=== PATIENT | female | born 1945 | race Two or more races ===

== ENCOUNTER → 2017-04-30 10:26 | Outpatient (CLI) | payer BC, SELFPAY ==
[2017-04-30 10:14] VITALS: BMI 26.2
--- NOTE | 2017-04-30 10:31 | RAD_ITS ---
STUDY: X-RAY - LEFT KNEE REASON FOR EXAM: Female, 71 years old. Knee pain. No trauma TECHNIQUE: 4 view(s) of the knee. COMPARISON: None. FINDINGS: Normal visualized distal femur. Normal visualized proximal tibia and fibula. Normal proximal tibiofibular articulation. There is tricompartmental osteoarthritis more prominent involving the patellofemoral joint. There is small joint effusion The soft tissue structures are unremarkable. RAD/Knee 4 or More Views IMPRESSION: Tricompartmental osteoarthritis. Small joint effusion Electronically Signed: Alejandro Lu MD, FACR at 11:14 EST , Service support ,
--- NOTE | 2017-04-30 11:10 | RAD_ITS ---
STUDY: X-RAY - LUMBOSACRAL SPINE REASON FOR EXAM: Female, 71 years old. Posterior low back pain. TECHNIQUE: 6 view(s) of the lumbosacral spine were obtained. COMPARISON: None FINDINGS: There is a first-degree L5 anterolisthesis in relationship to the S1 vertebra with mild disc space narrowing. A pars articularis defect cannot be identified and there is severe facet arthrosis. This appears most likely represent a degenerative anterolisthesis. There is increased lordosis of the lumbar spine with minimal endplate spondylosis. There is mild disc space narrowing at the L2-3 and L3-4 levels. Normal visualized soft tissue structures. RAD/L/S Spine Comp/w Bending Views IMPRESSION: 1. First-degree L5 anterolisthesis with severe degenerative arthrosis of the L5-S1 facet joint suggesting a degenerative anterolisthesis. 2. Mild disc space narrowing at the L2-3 and L3-4 levels. 3. Minimal endplate spondylosis with an increased lordosis of lumbar spine. Electronically Signed: Rodney Lima DO at 13:42 EST Tel , Service support ,
== END ==
PROVIDERS: Family Provider Family Medicine; PCP Family Medicine; Visit Provider Orthopaedic Surgery
DX: M25.561 Pain in right knee (principal); M54.9 Dorsalgia, unspecified
CPT/HCPCS: 72114; 73564

== ENCOUNTER → 2019-04-07 10:24 | Outpatient (CLI) | payer BC, SELFPAY ==
[2017-04-30 10:14] VITALS: BMI 26.2
--- NOTE | 2019-04-07 10:27 | BI_ITS ---
MAMMOGRAPHY - BILATERAL SCREENING REASON FOR EXAM: Female, 73 years old. Routine annual screening examination. PERTINENT HISTORY: Non-contributory. TECHNIQUE: Digital bilateral breast jose (3D mammographic acquisition) in the CC and MLO projections. 2-D mediolateral oblique (MLO) and craniocaudad (CC) views of both breasts were obtained. CAD: Full Field Digital Mammography with Computer Added Detection was performed. COMPARISON: Comparison is made with prior study dated May 29, 2016. FINDINGS: Breast Composition: The breasts are heterogeneously dense, which may obscure small masses. There are no dominant masses or suspicious calcifications. Stable benign-appearing bilateral axillary lymph nodes. No other significant abnormalities are identified. There has been no significant change since the prior study. BI/SCREEN MAMM (CAD) W/JOSE BILAT IMPRESSION: Stable bilateral screening mammogram. Yearly follow-up mammogram recommended. (A) ASSESSMENT CATEGORY: BIRADS Category 2: Benign. A letter regarding these results will be sent to the patient by the facility within 30 days. Approximately 10% of breast cancers are not detected by mammography. A normal mammogram should not delay biopsy of a clinically suspicious abnormality. [id number] Electronically Signed: Tristan Oswald, at 12:40 EST , Service support ,
== END ==
PROVIDERS: Family Provider Family Medicine; PCP Family Medicine; Referring Provider Family Medicine; Visit Provider Family Medicine
DX: Z12.31 Encounter for screening mammogram for malignant neoplasm of breast (principal)
CPT/HCPCS: 77063; 77067

== ENCOUNTER 2019-04-14 07:47 | Day surgery (SDC) | payer BC, SELFPAY ==
[2017-04-30 10:14] VITALS: BMI 26.2
[2019-04-14] VITALS (7 sets, daily range): BP systolic 75–130; BP diastolic 44–83; PULSE 58–65; RESP 16; TEMP 36.2–36.8; O2SAT 99–100
[2019-04-14] MEDS: Lactated Ringers 1,000 ML 100 ML IV (08:20)
--- NOTE | 2019-04-14 08:38 | H&P.OPEN ---
History of Present Illness Date of Admission: 04/14/19 The patient is a 73 year old F here for screening colonoscopy. The patient reports she is never had a colonoscopy in the past. She is not having any weight loss or abdominal pain. She has no family history of colon cancer. Past Medical/Surgical History - Planned Operation Planned Operative Procedure/s: cscope/open access Date of Operative Procedure: 04/14/19 Permit Signed: No S.O.S: No Is This Patient Having a Total Joint: No - Previous Hospitalizations/Surgeries HX Hospitalizations: No HX of Surgeries: csection Any Problems With Anesthesia: No You/Your Family Experience Fever (Hyperthermia) With Anes: No Cholinesterase deficiency: No - Cardiovascular Hx Chest Pain within Last 2 months: No Hx of Irregular Heartbeat and/or Afib: No Hx Heart Attack: No Hx Congestive Heart Failure: No Hx Rheumatic Fever: No Hx Hypertension: Yes - controlled with med Hx Internal Defibrillator: No Hx Pacemaker: No Hx Cardiac Catheterization: No Hx Cardiac Surgery/Stents/Etc.: No Hx Stress Test: No HX Edema: No Hx Pain in Legs when Walking/Leg Cramps: No - Respiratory Chronic Cough: No HX of Shortness of Breath: No Hoarseness: No Hx Chronic Obstructive Pulmonary Disease (COPD): No Hx Asthma: No Hx Emphysema: No Hx Sleep Apnea: No Hx Oxygen Use at Home: No Hx Respiratory Tract Infection/Cold (presently): No Do You Snore Loudly (louder than talking or can be heard): No Do You Often Feel Tired/ Fatigued/ Sleepy Dring Daytime?: No Has Anyone Observed You Stop Breathing During Sleep?: No Result (for STOP score): Negative Hx Smoking: No Smoking Status: Never smoker - Gastrointestinal Hx Gastroesophageal Reflux: No Hx Gastrointestinal Disorders: No Hx Gastrointestinal Bleed: No Hx Ulcer: No Hx Hiatal Hernia: No Difficulty Chewing/Swallowing: No Recent Onset of Swallowing Problems: No Special diet followed at home: No Hx Unplanned Weight Loss of 20#: No HX Unplanned Weight Gain of 20#: No - Neurological Hx Seizures: No HX Syncope/Blackout Spells/Unconsciousness: No Hx CVA/Stroke: No Hx Transient Ischemic Attacks (TIA): No Hx Multiple Sclerosis: No Hx Parkinson's Disease: No Hx Head/Neck Injury: No Hx Headaches: No Hx Back Injury/Pain: No Recent Onset of Speech Difficulty: No Restless Legs: No Does patient have nerve stimulator: No Patient instructed to have device shut off: No Rep notified?: No - Blood Disorder Hx Leukemia: No Bleeding Tendencies: No Hx Deep Vein Thrombosis: No Hx High Cholesterol: No Blood Transmitted Disease: No Hx Hepatitis: No Hx Cirrhosis: No Hx Anemia: No Hx Blood Disorders: No - Reproduction : No Is Patient Lactating: No Hx Hysterectomy: No Hx Tubal Ligation: No Are You Post Menopause: Yes - Genitourinary Hx Renal Disease: No - Musculoskeletal Hx Arthritis: Yes Hx Rheumatoid Arthritis: No Hx Gout: No Recent Onset of an Orthopedic Problem: No - Endocrine Hx Diabetes: No Thyroid Disease: No Hx Steroid Therapy: No - Psycho/Social Hx Substance Use: No Hx Alcohol Use: No Hx Anxiety: No Hx Depression: No Mental Illness: No Hx Dementia: No - Miscellaneous Hx Cancer: No Recent Exposure to Contagious Disease: No Active MRSA: No Hx of C-Diff: No Any Loose Teeth: No Allergies No Known Allergies Allergy (Verified 04/14/19 08:12) - Discharge Is Pt Admitted From a Long-Term, or a Mc[facility]: No Who Could Help: family After D/C, Where Do you Plan to Go: Return Home - From the PAT History Number of Risk Factors: 1 - Physical Exam Vitals/I&O's: Vital Signs Temp Pulse Resp BP Pulse Ox 98.2 F 65 16 130/83 H 99 04/14/19 08:10 04/14/19 08:10 04/14/19 08:10 04/14/19 08:10 04/14/19 08:10 Oxygen Delivery Method Room Air Weight: 129 lb 6.4 oz Body Mass Index (BMI) 26.2 General: Alert, Oriented x3 Lungs: Normal air movement Cardiovascular: Regular rate, Regular Rhythm Abdomen: Soft, Non Tender, Non-Distended Current Medications Lactated Ringer's () 1,000 mls @ 100 mls/hr IV .Q10H HIRAM Last Admin: 04/14/19 08:20 Dose: 100 mls/hr Documented by: Assessment/Plan 73-year-old female screening colonoscopy 1. I explained endoscopy in detail to the patient. I explained the risks including but not limited to stroke or heart attack with anesthesia, perforation of the GI tract, bleeding, infection. I explained that any of these could necessitate further emergency surgery. The patient understands and all questions were answered sufficiently. The patient wishes to proceed with procedure. Hasmukh Hodgson MD Pager: [facility] [address] [place] [address] [address] [place] [address] Office: Surgery Risks - Colonoscopy Risks Include but are not Limited To: Risks include but are not limited to: Bleeding, perforation requiring further surgery, inability to complete colonoscopy requiring barium enema.
--- NOTE | 2019-04-14 09:05 | OP.COLON_ITS ---
Patient Name: Roxana Coffman Procedure Date: 04/14/2019 8:41 AM Date of : 1945 Age: 73 Procedure: Colonoscopy Indications: Screening for colorectal malignant neoplasm Providers: Hasmukh Hodgson MD Referring MD: Caroline Medina Medicines: Monitored Anesthesia Care Patient Profile: This is a 73 year old female. Refer to note in patient chart for documentation of history and physical. Last Colonoscopy: none. The patient's first colonoscopy is today. Complications: No immediate complications. Procedure: Pre-Anesthesia Assessment: - Prior to the procedure, a History and Physical was performed, and patient medications and allergies were reviewed. The patient's tolerance of previous anesthesia was also reviewed. The risks and benefits of the procedure and the sedation options and risks were discussed with the patient. All questions were answered, and informed consent was obtained. Prior Anticoagulants: The patient has taken no previous anticoagulant or antiplatelet agents. After reviewing the risks and benefits, the patient was deemed in satisfactory condition to undergo the procedure. After I obtained informed consent, the scope was passed under direct vision. Throughout the procedure, the patient's blood pressure, pulse, and oxygen saturations were monitored continuously. The Colonoscope was introduced through the anus and advanced to the cecum, identified by appendiceal orifice and ileocecal valve. The colonoscopy was performed without difficulty. The patient tolerated the procedure well. The quality of the bowel preparation was good. Scope In: 8:50:46 AM Scope Withdrawal Time 0 hours 6 minutes 0 seconds Scope Out: 9:00:36 AM Total Procedure Duration Time 0 hours 9 minutes 50 seconds Findings: The entire examined colon appeared normal on direct and retroflexion views. Impression: - The entire examined colon is normal on direct and retroflexion views. - No specimens collected. Recommendation: - Discharge patient to home. - Resume previous diet. - Continue present medications. - Repeat colonoscopy is not recommended due to current age (66 years or older) for screening purposes. Procedure Code(s): --- Professional --- G0121, Colorectal cancer screening; colonoscopy on individual not meeting criteria for high risk Diagnosis Code(s): --- Professional --- Z12.11, Encounter for screening for malignant neoplasm of colon CPT copyright 2017 [employer] [employer]. All rights reserved. The codes documented in this report are preliminary and upon sterilisation technician review may be revised to meet current compliance requirements. Hasmukh Hodgson MD 04/14/2019 9:04:42 AM This report has been signed electronically. Number of Addenda: 0 Note Initiated On: 04/14/2019 8:41 AM
--- NOTE | 2019-04-14 09:05 | OP.CCLET_ITS ---
04/14/2019 Caroline Medina [address] [place] [address] Re : Colonoscopy procedure for Roxana Coffman Dear Dr. Medina This procedure was performed on Sunday, April 14, 2019. My impressions and recommendations are as follows: Impressions : - The entire examined colon is normal on direct and retroflexion views. - No specimens collected. Recommendations : - Discharge patient to home. - Resume previous diet. - Continue present medications. - Repeat colonoscopy is not recommended due to current age (66 years or older) for screening purposes. My findings are described in the full procedure note, which is enclosed. If I can be of further assistance, please feel free to contact me at Doctor phone number(s): , Work: . Sincerely, Hasmukh Hodgson MD 04/14/2019 9:04:42 AM This report has been signed electronically.
== END 2019-04-14 09:52 | disposition home or self-care (01) ==
LOC: EN 07:47 → AC 07:49
PROVIDERS: Family Provider Family Medicine; PCP Family Medicine; Referring Provider Family Medicine; Visit Provider Surgery
PROC: 0DJD8ZZ Inspection of Lower Intestinal Tract, Via Natural or Artificial Opening Endoscopic (ICD-10-PCS; CPT 45378; principal; 2019-04-14 08:55)
DX: Z12.11 Encounter for screening for malignant neoplasm of colon (principal); I10 Essential (primary) hypertension; M19.90 Unspecified osteoarthritis, unspecified site; Z79.899 Other long term (current) drug therapy
CPT/HCPCS: 45378; J7120

== ENCOUNTER → 2021-12-27 | Outpatient (CLI) | payer BC, SELFPAY ==
[2021-12-27 07:39] LABS: Absolute Lymphocyte Count 1.58 X10^3/uL (0.83-4.51); Absolute Neutrophil Count 1.9 X10^3/uL (2.0-7.7); Basophil# 0.04 X10^3/uL; Eosinophil# 0.19 X10^3/uL; Eosinophils% 4.5 % (0-5); Hemoglobin 9.8 g/dL (12.0-15.0); Lymphocyte # 1.58 X10^3/ul (0.83-4.51); Lymphocyte % 37.7 % (19-41); Mean Corp Hgb Conc 30.6 g/dL (32-36); Mean Corpuscular Volume 81.6 fL (81-99); Mean Platelet Vol. 9.7 fl (6.2-12.0); Monocyte# 0.42 X10^3/uL; NRBC Flagged by Analyzer 0 % (0-5); Neutrophil # 1.94 X10^3/uL (2.7-7.7); Neutrophil % 46.3 % (47-70); Platelet Count 290 K/mm3 (150-450); RBC Distribution Width CV 17.1 % (11.6-14.6); RBC Distribution Width SD 50.4 fl (35.1-43.9); Red Blood Count 3.92 M/mm3 (4.2-5.4); White Blood Count 4.2 K/mm3 (4.4-11.0)
[2021-12-27 08:00] LABS: AST(SGOT) 18 U/L (15-37); Alanine Aminotransfer ALT/SGPT 24 U/L (13-56); Albumin, Serum 3.5 g/dL (3.2-5.0); Alkaline Phosphatase 59 U/L (45-117); Anion Gap 6 (5-15); BUN 16 mg/dL (7-18); BUN/Creat Ratio 19.7 RATIO (10-20); Calcium,Total 8.8 mg/dL (8.5-10.1); Chloride 104 mmol/L (98-107); Cholesterol 170 mg/dL (200); Creatinine, Serum 0.81 mg/dL (0.55-1.02); EST Glomerular Filtration Rate 73 mL/min (>60); Est Glom Filt Rate - Afr Amer 89 mL/min (>60); Globulin 3.4 g/dL (2.2-4.2); Glucose 135 mg/dL (74-106); High Density Lipoprotein 64 mg/dL; Potassium 3.3 mmol/L (3.5-5.1); Protein, Total 6.9 g/dL (6.4-8.2); Sodium Level 141 mmol/L (136-145); Triglycerides 54 mg/dL; Very Low Density Lipoprotein 11 mg/dL (5-40)
[2021-12-27 08:08] LABS: Hemoglobin A1c 6.8 % (3.8-5.6)
== END | disposition home or self-care (01) ==
LOC: LAB 07:01
PROVIDERS: PCP Family Medicine; Referring Provider Family Medicine; Visit Provider Family Medicine
DX: I10 Essential (primary) hypertension (principal); R73.03 Prediabetes
CPT/HCPCS: 36415; 80053; 80061; 83036; 85025

== ENCOUNTER → 2022-03-04 | Outpatient (CLI) | payer BC, SELFPAY ==
--- NOTE | 2022-03-04 13:40 | BI_ITS ---
MAMMOGRAPHY - BILATERAL SCREENING REASON FOR EXAM: Female, 76 years old. Routine annual screening examination. PERTINENT HISTORY: Non-contributory. TECHNIQUE: Digital bilateral breast jose (3D mammographic acquisition) in the CC and MLO projections. 2-D mediolateral oblique (MLO) and craniocaudad (CC) views of both breasts were obtained. CAD: Full Field Digital Mammography with Computer Added Detection was performed. COMPARISON: Comparison is made with prior study dated 04/07/2019 and 05/29/2016. FINDINGS: Breast Composition: The breasts are heterogeneously dense, which may obscure small masses. There are no dominant masses or suspicious calcifications. Stable benign-appearing bilateral axillary lymph nodes. No other significant abnormalities are identified. There has been no significant change since the prior study. BI/SCRN MAMM (CAD)W/JOSE BILAT IMPRESSION: Stable bilateral screening mammogram. Yearly follow-up mammogram recommended. (A) ASSESSMENT CATEGORY: BIRADS Category 2: Benign. A letter regarding these results will be sent to the patient by the facility within 30 days. Approximately 10% of breast cancers are not detected by mammography. A normal mammogram should not delay biopsy of a clinically suspicious abnormality. [id number] Electronically Signed: Tristan Oswald MD at 14:39 EST ,
== END | disposition home or self-care (01) ==
LOC: OPBI 13:39
PROVIDERS: PCP Family Medicine; Visit Provider Family Medicine
DX: Z12.31 Encounter for screening mammogram for malignant neoplasm of breast (principal)
CPT/HCPCS: 77063; 77067

== ENCOUNTER → 2022-11-07 | Outpatient (CLI) | payer BC, SELFPAY ==
[2022-11-07 07:56] LABS: Absolute Lymphocyte Count 1.81 X10^3/uL (0.83-4.51); Basophil# 0.04 X10^3/uL; Basophil% 0.9 % (0-1); Eosinophil# 0.24 X10^3/uL; Eosinophils% 5.2 % (0-5); Hematocrit 40.5 % (37-47); Hemoglobin 13.4 g/dL (12.0-15.0); Lymphocyte # 1.81 X10^3/ul (0.83-4.51); Lymphocyte % 39.4 % (19-41); Mean Corp Hgb Conc 33.1 g/dL (32-36); Mean Corpuscular Hgb 30.7 pg (27.0-32.0); Mean Corpuscular Volume 92.9 fL (81-99); Mean Platelet Vol. 9.6 fl (6.2-12.0); Monocyte# 0.45 X10^3/uL; Monocyte% 9.8 % (0-10); NRBC Flagged by Analyzer 0 % (0-5); Neutrophil # 2.04 X10^3/uL (2.7-7.7); Neutrophil % 44.5 % (47-70); Platelet Count 232 K/mm3 (150-450); RBC Distribution Width CV 13.7 % (11.6-14.6); RBC Distribution Width SD 46.5 fl (35.1-43.9); Red Blood Count 4.36 M/mm3 (4.2-5.4); White Blood Count 4.6 K/mm3 (4.4-11.0)
[2022-11-07 08:43] LABS: ALB/GLOB Ratio 1.2 RATIO (0.9-2.4); AST(SGOT) 19 U/L (15-37); Alanine Aminotransfer ALT/SGPT 21 U/L (13-56); Albumin, Serum 3.9 g/dL (3.2-5.0); Alkaline Phosphatase 66 U/L (45-117); Anion Gap 3 (5-15); BUN 9 mg/dL (7-18); BUN/Creat Ratio 11.9 RATIO (10-20); Calcium,Total 8.9 mg/dL (8.5-10.1); Chloride 107 mmol/L (98-107); Cholesterol 192 mg/dL (200); Creatinine, Serum 0.76 mg/dL (0.55-1.02); EST Glomerular Filtration Rate 79 mL/min (>60); Est Glom Filt Rate - Afr Amer 96 mL/min (>60); Ferritin 93 ng/mL (8-252); Free T3 2.5 pg/mL (2.18-3.98); Globulin 3.2 g/dL (2.2-4.2); Glucose 107 mg/dL (74-106); High Density Lipoprotein 60 mg/dL; Iron 93 ug/dL (50-170); Potassium 3.4 mmol/L (3.5-5.1); Protein, Total 7.1 g/dL (6.4-8.2); Sodium Level 141 mmol/L (136-145); T4 Free Direct 1.12 ng/dL (0.76-1.46); Triglycerides 84 mg/dL; Very Low Density Lipoprotein 17 mg/dL (5-40)
[2022-11-08 09:21] LABS: Hemoglobin A1c 6.4 % (3.8-5.6)
== END | disposition home or self-care (01) ==
PROVIDERS: PCP Family Medicine; Referring Provider Family Medicine; Visit Provider Family Medicine
DX: E87.6 Hypokalemia (principal); D64.9 Anemia, unspecified; I10 Essential (primary) hypertension; E03.9 Hypothyroidism, unspecified; R73.03 Prediabetes
CPT/HCPCS: 36415; 80053; 80061; 82728; 83036; 83540; 84439; 84443; 84481; 85025

== ENCOUNTER → 2023-03-18 | Outpatient (CLI) | payer BC, SELFPAY ==
--- OUTSIDE RECORDS SUMMARY | 2023-03-18 08:04 | XMS RPT_ITS | CCD ---
Author Name Unknown Address [address] [place] [address] Organization [facility] Care Team Providers Care Fish Trapper Name Role Phone Caroline Irvin DO Primary Care Provider NORMAN MODI Attending Unavailable CAROLINE IRVIN Primary Care Unavailable MODINORMAN BIGGS Referring Unavailable BRANDEE CAROLINE Jonatan Primary Care Unavailable NORMAN MODI Attending Unavailable CAROLINE IRVIN Primary Care Unavailable NORMAN MODI Attending Unavailable MODIERICNORMAN K Referring Unavailable MODIERICNORMAN K Attending Unavailable BRANDEE CAROLINE A Primary Care Unavailable MODI NORMAN K Referring Unavailable MODIERICNORMAN K Attending Unavailable KAMILA IRVINA A Primary Care Unavailable ANNE NORMAN K Referring Unavailable Kamila Irvin DOa Isidra Unavailable Unavailable Kamila Irvin DOa Isidra Unavailable Unavailable Medications Current Medications Medication Drug Class(es) Dates Sig (Normalized) Sig (Original) ketorolac tromethamine 5 mg/ml ophthalmic solution (2 sources) Nonsteroidal Anti-inflammatory Drug, Cyclooxygenase Inhibitor Start: 11-27-2022 End: 01-01-2023 take 1 drop(s) into the eye(s) four times daily keTORolac (ACULAR) 0.5 % ophthalmic solution Use 1 Drop in the left eye four times daily. 5 mL 1 11/27/2022 01/01/2023 Active Completed/Discontinued Medications Medication Drug Class(es) Dates Sig (Normalized) Sig (Original) benoxinate hydrochloride 4 mg/ml / fluorescein sodium 2.5 mg/ml ophthalmic solution (1 source) Diagnostic Dye Start: 10-26-2022 End: 10-26-2022 fluorescein-benoxina te 0.25-0.4 % 1 Drop (FLURESS) betamethasone 1 mg/ml topical lotion (5 sources) Corticosteroid Start: 04-01-2017 betamethasone valerate 0.1 % lotion Indications: Ear itching 2-3 drops in affected ear twice daily as needed for itching 60 mL 1 04/01/2017 Active Problems Active Problems Problem Classification Problem Date Documented Da te Episodic/Chronic Cataract (15 sources) 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; Translations: [Combined forms of age-related cataract, left eye] Onset: 12-26-2014 10-26-2022 Chronic Essential hypertension (9 sources) Essential hypertension; Translations: [Essential (primary) hypertension] Onset: 12-31-2021 10-26-2022 Chronic Inflammation; infection of eye (except that caused by tuberculosis or sexually transmitteddisease) (5 sources) Bilateral punctate keratitis of eyes; Translations: [Punctate keratitis, bilateral] Onset: 11-22-2019 11-22-2019 Chronic Other eye disorders (5 sources) Bilateral vitreous floaters; Translations: [Other vitreous opacities, bilateral] Onset: 02-26-2014 02-27-2015 Chronic Other eye disorders (5 sources) Vitreous floaters; Translations: [Other vitreous opacities, unspecified eye] Onset: 12-26-2014 12-26-2014 Chronic Other eye disorders (5 sources) H/O: L cataract extraction; Translations: [Cataract extraction status, left eye] Onset: 12-03-2022 11-27-2022 Episodic Thyroid disorders (5 sources) Hypothyroidism; Translations: [Hypothyroidism, unspecified] Onset: 10-23-2022 10-26-2022 Chronic Past or Other Problems Problem Classification Problem Date Documented Da te Episodic/Chronic Blindness and vision defects (5 sources) Regular astigmatism; Translations: [Regular astigmatism, unspecified eye] Onset: 05-26-2014 05-26-2014 Episodic Other eye disorders (5 sources) Tear film insufficiency; Translations: [Dry eye syndrome of unspecified lacrimal gland] Onset: 12-26-2014 12-26-2014 Episodic Other eye disorders (5 sources) Disorder of lacrimal gland; Translations: [Dry eye syndrome of bilateral lacrimal glands] Onset: 11-22-2019 11-22-2019 Episodic Results Test Name Value Interpretation Reference Range Facil ity Vital Signs Date Time Vital Sign Value Performing Clinician Faci lity 11-24-2022 14:03-0400 Body height 154.7 cm Norman Modi MD Work Phone: [facility] 11-24-2022 14:03-0400 Body mass index (BMI) [Ratio] 24.23 kg/m2 Norman Modi MD Work Phone: [facility] 11-24-2022 14:03-0400 Body weight 58 kg Norman Modi MD Work Phone: [facility] 11-16-2022 09:32-0400 Diastolic blood pressure 81 mm[Hg] Norman Modi MD Work Phone: [facility] 11-16-2022 09:32-0400 Heart rate 66 /min Norman Modi MD Work Phone: [facility] 11-16-2022 09:32-0400 Systolic blood pressure 161 mm[Hg] Norman Modi MD Work Phone: [facility] 10-26-2022 09:46-0400 Diastolic blood pressure 81 mm[Hg] Norman Modi MD Work Phone: [facility] 10-26-2022 09:46-0400 Heart rate 66 /min Norman Modi MD Work Phone: [facility] 10-26-2022 09:46-0400 Systolic blood pressure 161 mm[Hg] Norman Modi MD Work Phone: [facility] Encounters Encounter Date Encounter Type Care Provider Facility Start: 01-08-2023 End: 01-08-2023 ambulatory NORMAN MODI Facility:[facility] Start: 01-08-2023 End: 01-08-2023 Patient encounter procedure Norman Modi MD Work Phone: Ophthalmology Procedures Date Procedure Procedure Detail Performing Clinician Start: 11-16-2022 ASCAN ONLY - DIAGNOS TIC OS (LEFT EYE) Norman Modi MD Work Phone: Start: 10-26-2022 ASCAN ONLY - DIAGNOS TIC OS (LEFT EYE) Norman Modi MD Work Phone: Start: 10-26-2022 Computerized ophthal mayra imaging retina Norman Modi MD Work Phone: Start: 06-15-2014 History of cataract extraction S/P laser cataract surgery - Right Eye Norman Modi MD Work Phone: Plan of Treatment Date Care Activity Detail Author Start: 11-20-2022 Covid-19 Vaccine () Covid-19 Vaccine () [facility] Start: 11-20-2022 Influenza vaccination [facility] Start: 03-22-2022 ADVANCE DIRECTIVE DISCUSSION ADVANCE DIRECTIVE DISCUSSION [facility] Start: 03-22-2022 DEPRESSION ASSESSMENT DEPRESSION ASSESSMENT [facility] Start: 06-10-2020 COVID-19 VACCINE (3 - Moderna series) COVID-19 VACCINE (3 - Moderna series) [facility] Start: 09-24-2012 BONE DENSITY BONE DENSITY [facility] Start: 09-24-2012 Bone Density Screening Bone Density Screening [facility] Start: 09-24-2012 Pneumococcal Vaccine: 65+ (1 - PCV) Pneumococcal Vaccine: 65+ (1 - PCV) [facility] Start: 09-24-2012 Pneumococcal Vaccine: 65+ Years (1 - PCV) Pneumococcal Vaccine: 65+ Years (1 - PCV) [facility] Start: 09-24-2012 PNEUMOCOCCAL: 65+ (1 - PCV) PNEUMOCOCCAL: 65+ (1 - PCV) [facility] Start: 2007 RSV Vaccine (1 - 1-dose 60+ series) RSV Vaccine (1 - 1-dose 60+ series) [facility] Start: 09-24-1997 SHINGRIX VACCINE (1 of 2) SHINGRIX VACCINE (1 of 2) [facility] Start: 09-24-1997 Zoster Vaccines (1 of 2) Zoster Vaccines (1 of 2) [facility] Start: 09-24-1992 COLOGUARD (FIT-DNA) COLOGUARD (FIT-DNA) [facility] Start: 09-24-1992 Colonoscopy COLONOSCOPY [facility] Start: 09-24-1992 COLORECTAL CANCER SCREENING COLORECTAL CANCER SCREENING [facility] Start: 09-24-[address] COLONOGRAPHY [facility] Start: 09-24-1992 DIABETES SCREEN DIABETES SCREEN [facility] Start: 09-24-1992 Diabetes Screening Diabetes Screening [facility] Start: 09-24-1992 FECAL OCCULT BLOOD FECAL OCCULT BLOOD [facility] Start: 09-24-1992 Lipid 1996 panel - Serum or Plasma Lipid Screening [facility] Start: 09-24-1992 LIPID SCREEN LIPID SCREEN [facility] Start: 09-24-1992 SIGMOIDOSCOPY SIGMOIDOSCOPY [facility] Start: 09-24-1969 DTaP/Tdap/Td Vaccines (1 - Tdap) DTaP/Tdap/Td Vaccines (1 - Tdap) [facility] Start: 09-24-1966 Urine microalbumin profile [facility] Start: 09-24-1965 ANNUAL PCP TEAM CHRONIC DISEASE VISIT ANNUAL PCP TEAM CHRONIC DISEASE VISIT [facility] Start: 09-24-1965 BP CONTROLLED (<130/80) BP CONTROLLED (<130/80) [facility] Start: 09-24-1965 HEPATITIS C SCREENING HEPATITIS C SCREENING [facility] Start: 09-24-1965 Hepatitis C screening Hepatitis C Screening [facility] Start: 03-27-1948 COVID-19 Vaccine (#1) COVID-19 Vaccine (#1) [facility] Start: 1947 Lipid panel Lipid Panel [facility] Start: 1947 Screening for malignant neoplasm of colon [facility] Start: 1947 Screening for osteoporosis Bone Density Scan [facility] Start: 1945 Yearly Adult Physical Yearly Adult Physical [facility] Payers Date Payer Category Payer Unknown Social History Date Type Detail Facility Start: 05-12-2014 End: 11-27-2022 Tobacco smoking status NHIS Never smoked tobacco [facility] Start: 05-12-2014 End: 11-27-2022 Tobacco use and exposure Smokeless tobacco non-user [facility] Start: 10-26-2022 End: 01-08-2023 Alcohol intake Current non-drinker of alcohol (finding) [facility] Start: 10-26-2022 End: 01-08-2023 History of Social function [facility] Start: 10-26-2022 End: 01-08-2023 Tobacco use panel [facility] National Score (1-100), lower number is lower risk 99 [facility] Start: 1945 Sex Assigned At Not on file C [facility] Tobacco smoking status TXIS Tobacco smoking consumption unknown [facility] Work Phone: Clinical Notes 12-26-2014 to 01-08-2023 Norman Modi MD - 01/08/2023 9:13 AM EDTPatient InstructionsPatient InstructionsNorman Modi MD - 12/03/2022 3:36 PM EDTPatient InstructionsNorman Modi MD - 11/27/2022 1:02 PM EDT Note Date & Type Note Facility 01-08-2023 Note HNO ID: [id number] Author: Norman Modi MD Service: ? Author Type: Physician Type: Progress Notes Filed: 01/08/2023 9:15 AM Note Text: ASSESSMENT/PLAN: 1. Status post cataract extraction and insertion of intraocular lens of left eye - ICD9: V45.61, V43.1, ICD10: Z98.42, Z96.1 (primary diagnosis) -healing well. Continue: Systane Complete Artificial Tears - Use 1 Drop into both eyes three times a day. 2. Pseudophakia of right eye - ICD9: V43.1, ICD10: Z96.1 -Intraocular lens in good position/ monitor. 3. Essential hypertension - ICD9: 401.9, ICD10: I10 4. Essential (primary) hypertension - ICD9: 401.9, ICD10: I10 -continue care with PCP I have confirmed and edited as necessary the relevant ophthalmic history, review of systems, surgical history, and ophthalmological examination findings as obtained by the ophthalmic technical staff. I have seen and examined Roxanaher Angel Coffman. I have discussed the examination findings, diagnosis, and treatment options with Roxana Coffman and/or her family. I have also reviewed and agree with the assessment and plan as stated above and agree with all its relevant components. I gave the patient the opportunity to ask questions about the findings, diagnosis, and treatment options. Norman Modi MD [facility] 01-08-2023 History of Present illness Narrative ASSESSMENT/PLAN: 1. Status post cataract extraction and insertion of intraocular lens of left eye - ICD9: V45.61, V43.1, ICD10: Z98.42, Z96.1 (primary diagnosis) -healing well. Continue: Systane Complete Artificial Tears - Use 1 Drop into both eyes three times a day. 2. Pseudophakia of right eye - ICD9: V43.1, ICD10: Z96.1 -Intraocular lens in good position/ monitor. 3. Essential hypertension - ICD9: 401.9, ICD10: I10 4. Essential (primary) hypertension - ICD9: 401.9, ICD10: I10 -continue care with PCP I have confirmed and edited as necessary the relevant ophthalmic history, review of systems, surgical history, and ophthalmological examination findings as obtained by the ophthalmic technical staff. I have seen and examined Roxana Coffman. I have discussed the examination findings, diagnosis, and treatment options with Roxana Coffman and/or her family. I have also reviewed and agree with the assessment and plan as stated above and agree with all its relevant components. I gave the patient the opportunity to ask questions about the findings, diagnosis, and treatment options. Norman Modi MD documented in this encounter [facility] 01-08-2023 Instructions Norman Modi MD - 01/08/2023 9:12 AM EDT Continue: Systane Complete Artificial Tears - Use 1 Drop into both eyes three times a day. If you have any questions please contact our office at [phone]. After office hours or on the weekend, please call Dr. Modi on his cell phone at [phone]. documented in this encounter [facility] 12-03-2022 Note HNO ID: [id number] Author: Norman Modi MD Service: ? Author Type: Physician Type: Progress Notes Filed: 12/03/2022 3:39 PM Note Text: ASSESSMENT/PLAN: 1. Status post cataract extraction and insertion of intraocular lens of left eye - ICD9: V45.61, V43.1, ICD10: Z98.42, Z96.1 (primary diagnosis) Left eye corrected for near Use medications as directed: Current Ophthalmic Meds keTORolac (ACULAR) 0.5 % ophthalmic solution Use 1 Drop in the left eye four times daily for 7 days then three times daily until 12/31/2022 prednisoLONE acetate (PRED FORTE) 1 % ophthalmic suspension Use 1 Drop in the left eye four times daily for 7 days then three times daily until 12/31/2022 Systane Complete Artificial Tears - Use 1 Drop into both eyes three times a day. 2. Pseudophakia of right eye - ICD9: V43.1, ICD10: Z96.1 Lens position well centered right eye Norman Modi MD I have confirmed and edited as necessary the relevant ophthalmic history, review of systems, surgical history, and ophthalmological examination findings as obtained by the ophthalmic technical staff. I have seen and examined Roxana Coffman. I have discussed the examination findings, diagnosis, and treatment options with Roxana Coffman and/or her family. I have also reviewed and agree with the assessment and plan as stated above and agree with all its relevant components. I gave the patient the opportunity to ask questions about the findings, diagnosis, and treatment options. [facility] 12-03-2022 Instructions Norman Modi MD - 12/03/2022 3:39 PM EDT Use medications as directed: Current Ophthalmic Meds keTORolac (ACULAR) 0.5 % ophthalmic solution Use 1 Drop in the left eye four times daily for 7 days then three times daily until 12/31/2022 prednisoLONE acetate (PRED FORTE) 1 % ophthalmic suspension Use 1 Drop in the left eye four times daily for 7 days then three times daily until 12/31/2022 Systane Complete Artificial Tears - Use 1 Drop into both eyes three times a day. If you have any questions please contact our office at [phone]. After office hours or on the weekend, please call Dr. Modi on his cell phone at [phone]. documented in this encounter [facility] 12-03-2022 History of Present illness Narrative ASSESSMENT/PLAN: 1. Status post cataract extraction and insertion of intraocular lens of left eye - ICD9: V45.61, V43.1, ICD10: Z98.42, Z96.1 (primary diagnosis) Left eye corrected for near Use medications as directed: Current Ophthalmic Meds keTORolac (ACULAR) 0.5 % ophthalmic solution Use 1 Drop in the left eye four times daily for 7 days then three times daily until 12/31/2022 prednisoLONE acetate (PRED FORTE) 1 % ophthalmic suspension Use 1 Drop in the left eye four times daily for 7 days then three times daily until 12/31/2022 Systane Complete Artificial Tears - Use 1 Drop into both eyes three times a day. 2. Pseudophakia of right eye - ICD9: V43.1, ICD10: Z96.1 Lens position well centered right eye Norman Modi MD I have confirmed and edited as necessary the relevant ophthalmic history, review of systems, surgical history, and ophthalmological examination findings as obtained by the ophthalmic technical staff. I have seen and examined Roxana Coffman. I have discussed the examination findings, diagnosis, and treatment options with Roxana Coffman and/or her family. I have also reviewed and agree with the assessment and plan as stated above and agree with all its relevant components. I gave the patient the opportunity to ask questions about the findings, diagnosis, and treatment options. documented in this encounter [facility] 11-27-2022 Note HNO ID: [id number] Author: Norman Modi MD Service: ? Author Type: Physician Type: Progress Notes Filed: 11/27/2022 1:10 PM Note Text: ASSESSMENT/PLAN: 1. Status post cataract extraction and insertion of intraocular lens of left eye - ICD9: V45.61, V43.1, ICD10: Z98.42, Z96.1 Current Ophthalmic Meds keTORolac (ACULAR) 0.5 % ophthalmic solution Use 1 Drop in the left eye four times daily. prednisoLONE acetate (PRED FORTE) 1 % ophthalmic suspension Use 1 Drop in the left eye four times daily. Continue: Systane Complete solution instill 1 drop 3 times daily Both Eyes. Norman Modi MD I have confirmed and edited as necessary the relevant ophthalmic history, review of systems, surgical history, and ophthalmological examination findings as obtained by the ophthalmic technical staff. I have seen and examined Roxana Coffman. I have discussed the examination findings, diagnosis, and treatment options with Roxana Coffman and/or her family. I have also reviewed and agree with the assessment and plan as stated above and agree with all its relevant components. I gave the patient the opportunity to ask questions about the findings, diagnosis, and treatment options. [facility] 11-27-2022 Instructions Norman Modi MD - 11/27/2022 1:03 PM EDT Current Ophthalmic Meds keTORolac (ACULAR) 0.5 % ophthalmic solution Use 1 Drop in the left eye four times daily. prednisoLONE acetate (PRED FORTE) 1 % ophthalmic suspension Use 1 Drop in the left eye four times daily. Continue: Systane Complete solution instill 1 drop 3 times daily Both Eyes. If you have any questions please contact our office at [phone]. After office hours or on the weekend, please call Dr. Modi on his cell phone at [phone]. documented in this encounter [facility] 11-27-2022 History of Present illness Narrative ASSESSMENT/PLAN: 1. Status post cataract extraction and insertion of intraocular lens of left eye - ICD9: V45.61, V43.1, ICD10: Z98.42, Z96.1 Current Ophthalmic Meds keTORolac (ACULAR) 0.5 % ophthalmic solution Use 1 Drop in the left eye four times daily. prednisoLONE acetate (PRED FORTE) 1 % ophthalmic suspension Use 1 Drop in the left eye four times daily. Continue: Systane Complete solution instill 1 drop 3 times daily Both Eyes. Norman Modi MD I have confirmed and edited as necessary the relevant ophthalmic history, review of systems, surgical history, and ophthalmological examination findings as obtained by the ophthalmic technical staff. I have seen and examined Roxana Coffman. I have discussed the examination findings, diagnosis, and treatment options with Roxana Coffman and/or her family. I have also reviewed and agree with the assessment and plan as stated above and agree with all its relevant components. I gave the patient the opportunity to ask questions about the findings, diagnosis, and treatment options. documented in this encounter [facility] 11-26-2022 Miscellaneous Notes Post Operative Note: Post-Procedure Diagnosis: 1. 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 Cataract Extraction with Intraocular Lens Implant Left Eye Surgeon: Norman Modi MD Resident/Fellow/Other Boat Dispatcher: None Estimated Blood Loss (mL): none Specimen: no Findings: 1. Combined Form Age Related Cataract Left Eye Operative Report Dictated: Dictation: not applicable - note contains Operative Report Operative Report: The patient was correctly identified in the preop area and the operative eye was marked with a marking pen. The operative eye was dilated in the preoperative area. The patient was then taken to the operating room where timeout was performed before starting the procedure. Combined anesthesia with intravenous sedation and topical tetracaine eyedrops were given the left eye. The operative eye was prepped and draped in the standard sterile ophthalmic fashion in preparation for ophthalmic surgery. A Carter wire speculum was then inserted between the eyelids of the left eye and the operating microscope was placed over the left eye. A paracentesis incision was made approximately 30 away from the planned surgical incision site with the help of MVR blade. 1% lidocaine MPF with Phenylephrine 1.5% PF was injected into the anterior chamber through the paracentesis incision. A near limbal clear corneal incision was fashioned in the temporal quadrant just outside the vascular arcade and Viscoat was injected into anterior chamber to firm the eye. A bent needle cystotome was used and Utrata forceps were utilized to create a continuous curvilinear capsulorrhexis. BSS was injected beneath the anterior capsule to hydrodissect the nucleus from adjacent cortex and capsule. The residual cortex were then aspirated with irrigation aspiration handpiece. The posterior capsule was then polished with the help of soft irrigation-aspiration tip. Provisc viscoelastic was then injected into the eye to reform the anterior chamber and to open the capsular bag. The intraocular lens implant was taken from its sterile wrapping, inspected under the surgical microscope and found to be in good condition. The intraocular lens implant 22.0D was injected into the capsule bag. The Provisc was then aspirated from the anterior chamber and from behind the intraocular lens implant. The anterior chamber was inflated with the help of BSS to moderate tension. The edges of the surgical incision were then hydrated with the help of BSS. Vigamox was then injected into the anterior chamber and into the capsule bag through the paracentesis incision. The surgical wound was then inspected and found to be watertight. The wire speculum and drapes were then removed. Pred Forte eyedrops, Acular eyedrops and Betadine 5% sterile ophthalmic solution were instilled in the conjunctival sac. The patient tolerated the procedure well and was taken to recovery room in stable condition. Attestation: Note Completion: Attending Attestation I performed the procedure without a resident Electronic Signatures: Norman Modi) (Signed 26-Nov-2022 13:06) Authored: Post Operative Note, Note Completion Last Updated: 26-Nov-2022 13:06 by Norman Modi) documented in this encounter [facility] Work Phone: 11-26-2022 Note Formatting of this n ote is different from the original. Post Operative Note: Post-Procedure Diagnosis: 1. 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 Cataract Extraction with Intraocular Lens Implant Left Eye Surgeon: Norman Modi MD Resident/Fellow/Other Boat Dispatcher: None Estimated Blood Loss (mL): none Specimen: no Findings: 1. Combined Form Age Related Cataract Left Eye Operative Report Dictated: Dictation: not applicable - note contains Operative Report Operative Report: The patient was correctly identified in the preop area and the operative eye was marked with a marking pen. The operative eye was dilated in the preoperative area. The patient was then taken to the operating room where timeout was performed before starting the procedure. Combined anesthesia with intravenous sedation and topical tetracaine eyedrops were given the left eye. The operative eye was prepped and draped in the standard sterile ophthalmic fashion in preparation for ophthalmic surgery. A Carter wire speculum was then inserted between the eyelids of the left eye and the operating microscope was placed over the left eye. A paracentesis incision was made approximately 30 away from the planned surgical incision site with the help of MVR blade. 1% lidocaine MPF with Phenylephrine 1.5% PF was injected into the anterior chamber through the paracentesis incision. A near limbal clear corneal incision was fashioned in the temporal quadrant just outside the vascular arcade and Viscoat was injected into anterior chamber to firm the eye. A bent needle cystotome was used and Utrata forceps were utilized to create a continuous curvilinear capsulorrhexis. BSS was injected beneath the anterior capsule to hydrodissect the nucleus from adjacent cortex and capsule. The residual cortex were then aspirated with irrigation aspiration handpiece. The posterior capsule was then polished with the help of soft irrigation-aspiration tip. Provisc viscoelastic was then injected into the eye to reform the anterior chamber and to open the capsular bag. The intraocular lens implant was taken from its sterile wrapping, inspected under the surgical microscope and found to be in good condition. The intraocular lens implant 22.0D was injected into the capsule bag. The Provisc was then aspirated from the anterior chamber and from behind the intraocular lens implant. The anterior chamber was inflated with the help of BSS to moderate tension. The edges of the surgical incision were then hydrated with the help of BSS. Vigamox was then injected into the anterior chamber and into the capsule bag through the paracentesis incision. The surgical wound was then inspected and found to be watertight. The wire speculum and drapes were then removed. Pred Forte eyedrops, Acular eyedrops and Betadine 5% sterile ophthalmic solution were instilled in the conjunctival sac. The patient tolerated the procedure well and was taken to recovery room in stable condition. Attestation: Note Completion: Attending Attestation I performed the procedure without a resident Electronic Signatures: Norman Modi) (Signed 26-Nov-2022 13:06) Authored: Post Operative Note, Note Completion Last Updated: 26-Nov-2022 13:06 by Norman Modi) [facility] Work Phone: 11-26-2022 History and physical note History & Physical Reviewed: I have reviewed the History and Physical dated: 16-Nov-2022 History and Physical reviewed and relevant findings noted. Patient examined to review pertinent physical findings.: No significant changes Home Medications Reviewed: no changes noted Allergies Reviewed: no changes noted ERAS (Enhanced Recovery After Surgery): ERAS Patient: no Consent: COVID-19 Consent: COVID-19 Risk Consent Surgeon has reviewed hart risks related to the risk of carri COVID-19 and if they contract COVID-19 what the risks are. Electronic Signatures: Norman Modi) (Signed 26-Nov-2022 11:45) Authored: History & Physical Reviewed, ERAS, Consent, Note Completion Last Updated: 26-Nov-2022 11:45 by Norman Modi) [facility] Work Phone: 11-26-2022 History and physical note History & Physical Reviewed: I have reviewed the History and Physical dated: 16-Nov-2022 History and Physical reviewed and relevant findings noted. Patient examined to review pertinent physical findings.: No significant changes Home Medications Reviewed: no changes noted Allergies Reviewed: no changes noted ERAS (Enhanced Recovery After Surgery): ERAS Patient: no Consent: COVID-19 Consent: COVID-19 Risk Consent Surgeon has reviewed hart risks related to the risk of carri COVID-19 and if they contract COVID-19 what the risks are. Electronic Signatures: Norman Modi) (Signed 26-Nov-2022 11:45) Authored: History & Physical Reviewed, ERAS, Consent, Note Completion Last Updated: 26-Nov-2022 11:45 by Norman Modi) documented in this encounter [facility] Work Phone: 11-16-2022 Note HNO ID: [id number] Author: Norman Modi MD Service: ? Author Type: Physician Type: Progress Notes Filed: 11/16/2022 9:57 AM Note Text: ASSESSMENT/PLAN: 1. Combined forms of age-related cataract, left eye - ICD9: 366.19, ICD10: H25.812 (primary diagnosis) Cataract Presurgical Documentation Cataract: Left eye (OS) Current Visual Acuity Right eye Distance 20/30 Left eye Distance 20/60 Visual Function: Roxana Coffman states that the decline in vision from the cataract impedes her abilities as listed in the HPI, as well as other activities of daily living. Roxana Coffman has confirmed that she is no longer able to function adequately on a day-to-day basis because of her current visual condition. Further, it is my medical opinion that the cataract is the primary cause, or at least a significantly contributory cause of her visual dysfunction. With uncomplicated cataract surgery and lens implantation, it is my expectation that her visual function and quality of life will improve, significantly. The risks, benefits, alternatives, personnel and complications of cataract surgery with lens implantation were discussed with Roxana Coffman in detail. she appeared to understand and asked that I proceed with plans for surgery. PHYSICAL EXAM: Vital Signs: Blood pressure 161/81, pulse 66. Respiratory: Normal breath sounds, no wheezing. CARD: Normal heart sounds 1 AND 2, normal sinus rhythm. Continue: Systane Complete Artificial Tears - Use 1 Drop into both eyes three times a day. Begin: Alrex eye drops- 1 drop left eye three times a day . Upon eye examination, patient was found to have a visually significant cataract left eye. Discussed cataract surgery with patient and different intraocular lens implant options with patient: basic monofocal intraocular lens implant, Toric intraocular lens implant, and presbyopia correction intraocular lens implant. In my medical opinion, based on medical history and ocular examination, cataract surgery with intraocular lens implant will correct patient's vision and improve quality of patient's daily living activities. Patient wishes to have traditional cataract surgery with basic intraocular lens left eye on November 26, 2022 at [facility]. Patient wishes to have cataract surgery with the option stated above. Patient understands that an intraocular lens implant does not necessarily replace the need for glasses. Patient understands that it is impossible for the surgeon to inform him/her of every possible complication that may occur. The surgeon has answered all of the patient's questions. Patient understands that if he/she has a mature or dense cataract, pseudoexfoliation cataract, or history of use of Flomax, he/she may require the use of Maluyugin Ring and/or Vision Blue during surgery. Patient understands the risks, benefits, and alternatives to surgery. 2. Pseudophakia of right eye - ICD9: V43.1, ICD10: Z96.1 -Intraocular lens in good position. 3. Essential hypertension - ICD9: 401.9, ICD10: I10 -continue care with PCP I have confirmed and edited as necessary the relevant ophthalmic history, review of systems, surgical history, and ophthalmological examination findings as obtained by the ophthalmic technical staff. I have seen and examined Roxana Coffman. I have discussed the examination findings, diagnosis, and treatment options with Roxana Coffman and/or her family. I have also reviewed and agree with the assessment and plan as stated above and agree with all its relevant components. I gave the patient the opportunity to ask questions about the findings, diagnosis, and treatment options. Norman Modi MD [facility] 11-16-2022 Instructions Norman Modi MD - 11/16/2022 9:41 AM EDT Continue: Systane Complete Artificial Tears - Use 1 Drop into both eyes three times a day. Begin: Alrex eye drops- 1 drop left eye three times a day . If you have any questions please contact our office at [phone]. After office hours or on the weekend, please call Dr. Modi on his cell phone at [phone]. documented in this encounter [facility] 11-16-2022 History of Present illness Narrative ASSESSMENT/PLAN: 1. Combined forms of age-related cataract, left eye - ICD9: 366.19, ICD10: H25.812 (primary diagnosis) Cataract Presurgical Documentation Cataract: Left eye (OS) Current Visual Acuity Right eye Distance 20/30 Left eye Distance 20/60 Visual Function: Roxana Coffman states that the decline in vision from the cataract impedes her abilities as listed in the HPI, as well as other activities of daily living. Roxana Coffman has confirmed that she is no longer able to function adequately on a day-to-day basis because of her current visual condition. Further, it is my medical opinion that the cataract is the primary cause, or at least a significantly contributory cause of her visual dysfunction. With uncomplicated cataract surgery and lens implantation, it is my expectation that her visual function and quality of life will improve, significantly. The risks, benefits, alternatives, personnel and complications of cataract surgery with lens implantation were discussed with Roxana Coffman in detail. she appeared to understand and asked that I proceed with plans for surgery. PHYSICAL EXAM: Vital Signs: Blood pressure 161/81, pulse 66. Respiratory: Normal breath sounds, no wheezing. CARD: Normal heart sounds 1 & 2, normal sinus rhythm. Continue: Systane Complete Artificial Tears - Use 1 Drop into both eyes three times a day. Begin: Alrex eye drops- 1 drop left eye three times a day . Upon eye examination, patient was found to have a visually significant cataract left eye. Discussed cataract surgery with patient and different intraocular lens implant options with patient: basic monofocal intraocular lens implant, Toric intraocular lens implant, and presbyopia correction intraocular lens implant. In my medical opinion, based on medical history and ocular examination, cataract surgery with intraocular lens implant will correct patient's vision and improve quality of patient's daily living activities. Patient wishes to have traditional cataract surgery with basic intraocular lens left eye on November 26, 2022 at [facility]. Patient wishes to have cataract surgery with the option stated above. Patient understands that an intraocular lens implant does not necessarily replace the need for glasses. Patient understands that it is impossible for the surgeon to inform him/her of every possible complication that may occur. The surgeon has answered all of the patient's questions. Patient understands that if he/she has a mature or dense cataract, pseudoexfoliation cataract, or history of use of Flomax, he/she may require the use of Maluyugin Ring and/or Vision Blue during surgery. Patient understands the risks, benefits, and alternatives to surgery. 2. Pseudophakia of right eye - ICD9: V43.1, ICD10: Z96.1 -Intraocular lens in good position. 3. Essential hypertension - ICD9: 401.9, ICD10: I10 -continue care with PCP I have confirmed and edited as necessary the relevant ophthalmic history, review of systems, surgical history, and ophthalmological examination findings as obtained by the ophthalmic technical staff. I have seen and examined Roxana Coffman. I have discussed the examination findings, diagnosis, and treatment options with Roxana Coffman and/or her family. I have also reviewed and agree with the assessment and plan as stated above and agree with all its relevant components. I gave the patient the opportunity to ask questions about the findings, diagnosis, and treatment options. Norman Modi MD documented in this encounter [facility] 10-26-2022 Note HNO ID: [id number] Author: Norman Modi MD Service: ? Author Type: Physician Type: Progress Notes Filed: 10/26/2022 3:19 PM Note Text: ASSESSMENT/PLAN: 1. Combined forms of age-related cataract, left eye - ICD9: 366.19, ICD10: H25.812 (primary diagnosis) Patient is scheduled for Cataract extraction with insertion of basic Intraocular lens Left eye on 11/26/2022 at [facility]. Upon eye examination, patient was found to have a visually significant cataract left eye. Discussed cataract surgery with patient and different intraocular lens implant options with patient: basic monofocal intraocular lens implant, Toric intraocular lens implant, and presbyopia correction intraocular lens implant. In my medical opinion, based on medical history and ocular examination, cataract surgery with intraocular lens implant will correct patient's vision and improve quality of patient's daily living activities. Patient wishes to have traditional cataract surgery with basic intraocular lens left eye. Patient wishes to have cataract surgery with the option stated above. Patient understands that an intraocular lens implant does not necessarily replace the need for glasses. Patient understands that it is impossible for the surgeon to inform him/her of every possible complication that may occur. The surgeon has answered all of the patient's questions. Patient understands that if he/she has a mature or dense cataract, pseudoexfoliation cataract, or history of use of Flomax, he/she may require the use of Maluyugin Ring and/or Vision Blue during surgery. Patient understands the risks, benefits, and alternatives to surgery. PHYSICAL EXAM: Vital Signs: Blood pressure 161/81, pulse 66. Respiratory: Normal breath sounds, no wheezing. CARD: Normal heart sounds 1 AND 2, normal sinus rhythm. Continue: Systane Complete Artificial Tears - Use 1 Drop into both eyes three times a day. Patient to return 11/16/2022 to sign basic consents. 2. Pseudophakia of right eye - ICD9: V43.1, ICD10: Z96.1 -Intraocular lens in good position 3. Essential hypertension - ICD9: 401.9, ICD10: I10 -Continue to monitor with primary care physician. I have confirmed and edited as necessary the relevant ophthalmic history, review of systems, surgical history, and ophthalmological examination findings as obtained by the ophthalmic technical staff. I have seen and examined Roxana Coffman. I have discussed the examination findings, diagnosis, and treatment options with Roxana Coffman and/or her family. I have also reviewed and agree with the assessment and plan as stated above and agree with all its relevant components. I gave the patient the opportunity to ask questions about the findings, diagnosis, and treatment options. Norman Modi MD [facility] 10-26-2022 Instructions Norman Modi MD - 10/26/2022 9:32 AM EDT Please report to your PCP for complete physical, BMP, and EKG prior to surgery Continue: Systane Complete solution instill 1 drop 3 times daily Both Eyes. If you have any questions please contact our office at [phone]. After office hours or on the weekend, please call Dr. Modi on his cell phone at [phone]. documented in this encounter [facility] 10-26-2022 History of Present illness Narrative ASSESSMENT/PLAN: 1. Combined forms of age-related cataract, left eye - ICD9: 366.19, ICD10: H25.812 (primary diagnosis) Patient is scheduled for Cataract extraction with insertion of basic Intraocular lens Left eye on 11/26/2022 at [facility]. Upon eye examination, patient was found to have a visually significant cataract left eye. Discussed cataract surgery with patient and different intraocular lens implant options with patient: basic monofocal intraocular lens implant, Toric intraocular lens implant, and presbyopia correction intraocular lens implant. In my medical opinion, based on medical history and ocular examination, cataract surgery with intraocular lens implant will correct patient's vision and improve quality of patient's daily living activities. Patient wishes to have traditional cataract surgery with basic intraocular lens left eye. Patient wishes to have cataract surgery with the option stated above. Patient understands that an intraocular lens implant does not necessarily replace the need for glasses. Patient understands that it is impossible for the surgeon to inform him/her of every possible complication that may occur. The surgeon has answered all of the patient's questions. Patient understands that if he/she has a mature or dense cataract, pseudoexfoliation cataract, or history of use of Flomax, he/she may require the use of Maluyugin Ring and/or Vision Blue during surgery. Patient understands the risks, benefits, and alternatives to surgery. PHYSICAL EXAM: Vital Signs: Blood pressure 161/81, pulse 66. Respiratory: Normal breath sounds, no wheezing. CARD: Normal heart sounds 1 & 2, normal sinus rhythm. Continue: Systane Complete Artificial Tears - Use 1 Drop into both eyes three times a day. Patient to return 11/16/2022 to sign basic consents. 2. Pseudophakia of right eye - ICD9: V43.1, ICD10: Z96.1 -Intraocular lens in good position 3. Essential hypertension - ICD9: 401.9, ICD10: I10 -Continue to monitor with primary care physician. I have confirmed and edited as necessary the relevant ophthalmic history, review of systems, surgical history, and ophthalmological examination findings as obtained by the ophthalmic technical staff. I have seen and examined Roxana Coffman. I have discussed the examination findings, diagnosis, and treatment options with Roxana Coffman and/or her family. I have also reviewed and agree with the assessment and plan as stated above and agree with all its relevant components. I gave the patient the opportunity to ask questions about the findings, diagnosis, and treatment options. Norman Modi MD documented in this encounter [facility] documented as of this encounter (statuses as of 10/27/2022) [facility]10-[facility] History of Past illness Narrative* Problem Noted Date Diagnosed Date Resolved Date Bilateral pseudophakia 12/26/201403/16 Lens replaced by other means - Both Eyes 06/15/2014 02/27/2015 documented as of this encounter (statuses as of 11/16/2022) [facility] History of Past illness Narrative* Problem Noted Date Diagnosed Date Resolved Date Bilateral pseudophakia 12/26/201403/16 Lens replaced by other means - Both Eyes 06/15/2014 02/27/2015 documented as of this encounter (statuses as of 11/27/2022) [facility] History of Past illness Narrative* Problem Noted Date Diagnosed Date Resolved Date Bilateral pseudophakia 12/26/201403/16 Combined forms of age-relate d cataract, left eye 12/26/2014 12/03/2022 Lens replaced by other means - Both Eyes 06/15/2014 02/27/2015 documented as of this encounter (statuses as of 12/04/2022) [facility] History of Past illness Narrative* Problem Noted Date Diagnosed Date Resolved Date Bilateral pseudophakia 12/26/201403/16 Combined forms of age-relate d cataract, left eye 12/26/2014 12/03/2022 Lens replaced by other means - Both Eyes 06/15/2014 02/27/2015 documented as of this encounter (statuses as of 01/08/2023) [facility] Combined forms of age-related cataract, left eye- Primary Pseudophakia of right eye Lens replaced by other means Essential hypertension Unspecified essential [facility] Combined forms of age-related cataract, left eye- Primary Pseudophakia of right eye Lens replaced by other means Essential hypertension Unspecified essential hypertension Combined form of age-related cataract, left eye [facility] Diagnosis Status post cataract extraction and insertion of intraocular lens of left eye- Primary [facility] Diagnosis Status post cataract extraction and insertion of intraocular lens of left eye- Primary Pseudophakia of right eye Lens replaced by other means [facility] Diagnosis Status post cataract extraction and insertion of intraocular lens of left eye- Primary Pseudophakia of right eye Lens replaced by other means Essential hypertension Unspecified essential hypertension Essential (primary) hypertension Unspecified essential hypertension [facility] Combined forms of age-related cataract, left eye documented in this encounter [facility] Work Phone: Summary Purpose Family History No Family History Records FoundNo Family History Records Found Advance Directives No Advanced Directives Records FoundNo Advanced Directives Records Found Medications Administered Section Inactive Administered Medications - up to 3 most recent administrations Medication Order MAR Action Action Date Dose Rate Site fluorescein-benoxinate 0.25-0.4 % 1 Drop (FLURESS) 1 Drop, BOTH EYES, DIRECTED, Starting on Wed10/26/22 at 0900, Until Wed10/26/22 at 2058, Administer for applanation tonometry. In the event of a Fluress shortage, administer Crosby-Fluor 1 drop into both eyes as directed for applanation tonometry Given 10/26/2022 9:00 AM EDT 1 Drop PHENYLephrine 2.5 % 1 Drop (AK-DILATE, KILLIAN-SYNEPHRINE) 1 Drop, BOTH EYES, DIRECTED, Starting on Wed10/26/22 at 0900, Until Wed10/26/22 at 2058, Administer for dilation PROTECT FROM LIGHT Given 10/26/2022 9:00 AM EDT 1 Drop proparacaine 0.5 % 1 Drop (ALCAINE) 1 Drop, BOTH EYES, DIRECTED, Starting on Wed10/26/22 at 0900, Until Wed10/26/22 at 2058, Administer for pneumo tonometry, tonopen tonometry, or pachymetry. In the event of a proparacaine shortage, administer tetracaine 0.5% ophthalmic drops 1 drop in the left eye as directed for pneumo tonometry, tonopen tonometry, or pachymetry Given 10/26/2022 9:00 AM EDT 1 Drop tropicamide 1 % 1 Drop (MYDRIACYL) 1 Drop, BOTH EYES, DIRECTED, Starting on Wed10/26/22 at 0900, Until Wed10/26/22 at 2058, Administer for dilation Given 10/26/2022 9:00 AM EDT 1 Drop Active Administered Medications - up to 3 most recent administrations Medication Order MAR Action Action Date Dose Rate Site proparacaine 0.5 % 1 Drop (ALCAINE) 1 Drop, BOTH EYES, DIRECTED, Starting on Wed12/03/22 at 1600, Until Wed12/04/22 at 0359, Administer for pneumo tonometry, tonopen tonometry, or pachymetry. In the event of a proparacaine shortage, administer tetracaine 0.5% ophthalmic drops 1 drop in the left eye as directed for pneumo tonometry, tonopen tonometry, or pachymetry Given 12/03/2022 4:00 PM EDT 1 Drop Additional Source Comments INFORMATION SOURCE (unrecogn ized section and content) DATE CREATED AUTHOR AUTHOR'S ORGANIZ ATION 01/10/2023 [facility] Source Comments (unrecognize d section and content) In the event this informatio n is protected by the Federal Confidentiality of Alcohol and Drug Abuse Patient Records regulations: The Federal rules restrict any use of the information to criminally investigate or prosecute any alcohol or drug abuse patient.[facility] the event this information is protected by the Federal Confidentiality of Alcohol and Drug Abuse Patient Records regulations: The Federal rules restrict any use of the information to criminally investigate or prosecute any alcohol or drug abuse patient.[facility] the event this information is protected by the Federal Confidentiality of Alcohol and Drug Abuse Patient Records regulations: The Federal rules restrict any use of the information to criminally investigate or prosecute any alcohol or drug abuse patient.[facility] the event this information is protected by the Federal Confidentiality of Alcohol and Drug Abuse Patient Records regulations: The Federal rules restrict any use of the information to criminally investigate or prosecute any alcohol or drug abuse patient.[facility] the event this information is protected by the Federal Confidentiality of Alcohol and Drug Abuse Patient Records regulations: The Federal rules restrict any use of the information to criminally investigate or prosecute any alcohol or drug abuse patient.[facility] Reason for Visit (unrecogniz ed section and content) Specialty Diagnoses / Procedures Referred By aZra sosa Referred To Contact Ophthalmology / OPHTHALMOLOGY Diagnoses Cataracts, bilateral Procedures OFFICE/OUTPATIENT ESTABLISHED MOD MDM 30-39 MIN Norman Modi MD [address] [place], [place] [id number] Norman Modi MD [address] [place], [place] [id number] Referral ID Status Reason Start Date Expiration Date V isits Requested Visits Authorized [id number] Closed Financial Clearance Required - Self Pay Patient Cleared - True Self-Pay required payment collected 10/19/2022 01/17/2023 1 1 Reason Comments Blurred Vision Left Eye Difficulty Reading Left Eye Glare Left eye Halos Left Eye Specialty Diagnoses / Procedures Referred By Zara sosa Referred To Contact OPHTHALMOLOGY Diagnoses Cataract Procedures OFFICE/OUTPATIENT ESTABLISHED LOW MDM 20-29 MIN Norman Modi MD [address] [place] [address] [facility] [place] [address] [id number] Referral ID Status Reason Start Date Expiration Date V isits Requested Visits Authorized [id number] Closed Patient Cleared - True Self-Pay required payment collected 10/26/2022 01/24/2023 1 1 Reason Comments Post-op Cataract OS Status Post Cataract Surgery with Monofocal Intraocular Lens Implant Left Eye (11/26/2022) [for near] Reason Comments Post-op Cataract OS 11/26/2022 Reason Comments Post-op Cataract OS Status Post Cataract Surgery with Monofocal Intraocular Lens Implant Left Eye (11/26/2022) Fluttering left eye Off and on Reason Comments Other Combined forms of ag e-related cataract, left eye Care Teams (unrecognized sec tion and content) Fish Trapper Relationship Specialty Start Date End Date Caroline Irvin DO [address] [place] [address] PCP - General Family Medicine 05/15/16 Fish Trapper Relationship Specialty Start Date End Date Caroline Irvin DO [address] [place] [address] PCP - General Family Medicine 05/15/16 Fish Trapper Relationship Specialty Start Date End Date Caroline Irvin DO [address] [place] [address] PCP - General Family Medicine 05/15/16 Fish Trapper Relationship Specialty Start Date End Date Caroline Irvin DO [address] [place] [address] PCP - General Family Medicine 05/15/16 Fish Trapper Relationship Specialty Start Date End Date Caroline Irvin DO PCP - Employee [employer] PCP 01/20/22 Caroline Irvin PCP - [facility] PCP 08/20/22 FOR RECORDS PERTAINING TO PATIENTS WHO ARE OR HAVE BEEN ENROLLED IN A CHEMICAL DEPENDENCY/SUBSTANCEABUSE PROGRAM, SOME INFORMATION MAY BE OMITTED. This clinical summary was aggregated from multiple sources. Caution should be exercised in using it in the provision of clinical care. This summary normalizes information from multiple sources, and as a consequence, information in this document may materially change the coding, format and clinical context of patient data. In addition, data may be omitted in some cases. CLINICAL DECISIONS SHOULD BE BASED ON THE PRIMARY CLINICAL RECORDS. [facility] [employer] provides no warranty or guarantee of the accuracy or completeness of information in this document.
--- NOTE | 2023-03-18 08:05 | BI_ITS ---
MAMMOGRAPHY - BILATERAL SCREENING 3-D TOMOSYNTHESIS REASON FOR EXAM: Female, 77 years old. SCREENING PERTINENT HISTORY: No significant family history. TECHNIQUE: 2-D mammograms and 3-D Tomosynthesis of the breast (s) were performed. CAD was performed. COMPARISON: None. FINDINGS: Stable scattered fibroglandular densities. Stable normal lymph nodes and scattered benign calcifications. No dominant masses, suspicious microcalcifications, asymmetries, skin thickening or nipple retraction. BI/SCRN MAMM (CAD)W/JOSE BILAT IMPRESSION: No interval change and no mammographic signs of malignancy. Yearly screening mammogram recommended. ASSESSMENT CATEGORY: BIRADS Category 2: Benign. A letter regarding these results will be sent to the patient by the facility within 30 days. FOLLOW UP RECOMMENDATION: Yearly follow up mammogram recommended. (A) Approximately 10% of breast cancers are not detected by mammography. A normal mammogram should not delay biopsy of a clinically suspicious abnormality. Electronically Signed: Suresh Harris MD at 11:06 EST ,
== END | disposition home or self-care (01) ==
LOC: OPBI 08:01
PROVIDERS: PCP Family Medicine; Referring Provider Family Medicine; Visit Provider Family Medicine
DX: Z12.31 Encounter for screening mammogram for malignant neoplasm of breast (principal)
CPT/HCPCS: 77063; 77067

== ENCOUNTER → 2024-03-20 | Outpatient (CLI) | payer BC, SELFPAY ==
--- NOTE | 2024-03-20 11:59 | BI_ITS ---
MAMMOGRAPHY - BILATERAL SCREENING 3-D TOMOSYNTHESIS REASON FOR EXAM: Female, 78 years old. SCREENING PERTINENT HISTORY: No significant family history. TECHNIQUE: 2-D mammograms and 3-D Tomosynthesis of the breast (s) were performed. CAD was performed. COMPARISON: 03/18/2023 FINDINGS: The breast composition is composed of scattered fibroglandular density. Scattered benign calcifications are seen. No dense spiculated masses or suspicious microcalcifications are identified. No architectural distortion is identified. There is no skin thickening or retraction. There has been no significant change since the prior study. BI/SCRN MAMM (CAD)W/JOSE BILAT IMPRESSION: No mammographic signs of malignancy. Routine yearly mammograms recommended. ASSESSMENT CATEGORY: BIRADS Category 1: Negative. A letter regarding these results will be sent to the patient by the facility within 30 days. FOLLOW UP RECOMMENDATION: Yearly follow up mammogram recommended. (A) Approximately 10% of breast cancers are not detected by mammography. A normal mammogram should not delay biopsy of a clinically suspicious abnormality. Electronically Signed: Riley Garcia MD at 20:45 EST ,
== END | disposition home or self-care (01) ==
LOC: OPBI 11:56
PROVIDERS: PCP Family Medicine; Referring Provider Family Medicine; Visit Provider Family Medicine
DX: Z12.31 Encounter for screening mammogram for malignant neoplasm of breast (principal)
CPT/HCPCS: 77063; 77067